=== PATIENT | male | born 1935 | race American Indian/Alaskan Native ===

== ENCOUNTER 2020-03-23 22:06 | Emergency (ER) | payer MEDICARE ==
--- NOTE | 2020-03-23 22:34 | Emergency Department Report ---
ED General Adult HPI - General Chief complaint: Extremity Injury, Lower Stated complaint: LT HIP PAIN/FALL PUI?: No Time Seen by Provider: 03/23/20 22:26 Source: patient, EMS ( EMS documentation not available at time of chart dictation ), RN notes reviewed Mode of arrival: Stretcher Limitations: Physical Limitation - History of Present Illness Initial comments: Patient is an 84-year-old gentleman with a probable history of Parkinson's, ambulatory, reportedly without a walker, hypertension, dementia. Primary care doctor Dr. Cristina with [facility] The patient presents to the ER with mechanical fall, with left hip pain. The pa tient denies additional injuries and additional complaints. He accidentally walked into someone and then fell. His left hip pain is constant, increases with palpation, range of motion and decreases with rest. He is demented and somewhat of a poor historian, so he has difficulty describing the qualitative nature of his symptoms, exacerbating, or relieving factors. He is not accompanied by friends or family at this time for additional information and/or collateral information As per collateral information obtained from nursing team and triage documentation, the fall was earlier on today. Patient is not accompanied by friends or family at this time for additional history. -: Sudden, This evening Location: left, lower extremity Quality: other Consistency: other Improves with: other Worsens with: other Associated Symptoms: other - Related Data Allergies Allergy/AdvReac Type Severity Reaction Status Date / Time Unable to Assess Allergy Unverified 03/23/20 22:57 ED Review of Systems ROS: Stated complaint: LT HIP PAIN/FALL Other details as noted in HPI Constitutional: denies: fever Eyes: denies: eye discharge Respiratory: denies: cough Cardiovascular: denies: syncope Gastrointestinal: denies: abdominal pain Genitourinary: denies: dysuria Musculoskeletal: arthralgia, myalgia Neurological: as per HPI ED Physical Exam - General Limitations: Physical Limitation General appearance: alert, anxious, in distress - Head Head exam: Present: atraumatic, normocephalic - Eye Eye exam: Present: normal appearance, EOMI. Absent: nystagmus - ENT ENT exam: Present: normal exam, normal orophraynx, mucous membranes moist, normal external ear exam - Neck Neck exam: Present: normal inspection, full ROM. Absent: tenderness, meningismus - Respiratory Respiratory exam: Present: normal lung sounds bilaterally. Absent: respiratory distress - Cardiovascular Cardiovascular Exam: Present: regular rate, normal rhythm, normal heart sounds. Absent: bradycardia, tachycardia, irregular rhythm, systolic murmur, diastolic murmur, rubs, gallop - GI/Abdominal GI/Abdominal exam: Present: soft. Absent: distended, tenderness, guarding, rebound, rigid, pulsatile mass - Rectal Rectal exam: Present: deferred - Extremities Exam Extremities exam: Present: tenderness, pedal edema, other (2+ pulses noted in the bilateral upper and lower extremities. There is no long bony tenderness with the exception of isolated left-sided hip and proximal femur tenderness. There is no ankle or knee tenderness. Range of motion is intact in the bilateral upper extremities, and right lower extremity. Range of motion in the left lower extremity limited secondary to pain). Absent: normal inspection, calf tenderness - Back Exam Back exam: Present: normal inspection, full ROM. Absent: CVA tenderness (R), CVA tenderness (L), paraspinal tenderness, vertebral tenderness - Neurological Exam Neurological exam: Present: alert (Patient is awake and follows commands. Has a nonspecific generalized tremor noted), other (No facial droop. Tongue midline. Extraocular movements intact bilaterally. Facial sensation intact to light touch in V1, V2, V3 distribution bilaterally. 5 and a 5 strength in 4 extremities. Sensation intact to light touch in 4 extremities.) - Psychiatric Psychiatric exam: Present: anxious - Skin Skin exam: Present: warm, dry, intact, normal color. Absent: rash ED Course Vital Signs 03/23/20 03/23/20 03/24/20 23:48 23:51 00:06 Temperature 98.2 F 97.2 F L Pulse Rate 73 78 Respiratory 18 18 16 Rate Blood Pressure 171/88 Blood Pressure 171/88 [Right] O2 Sat by Pulse 98 99 Oximetry - Reevaluation(s) Reevaluation #1: 03/23/20 23:55 Differential diagnosis, including but not limited to: Hip fracture, femur fracture, mechanical fall, intracranial injury, cervical spine injury Assessment and plan: 84-year-old gentleman with reported history of mechanical fall, found to have left-sided femur fracture, no C-spine injury, no intracranial injury, vital signs reviewed and appreciated, laboratory studies so far unremarkable. I have reached out to [facility] physician and discussed the case with Dr. Dacosta, they will likely transfer the patient to 1 of their primary receiving facilities as it is their policy. EKG shows first-degree AV block of unknown chronicity. Vital signs stable. This can be followed up/managed as an outpatient. 03/24/20 00:09 Reevaluation #2: 03/24/20 00:20 Dr Lomax, physician at [facility], accepting physician hypokalemia will be treated ED Medical Decision Making - Lab Data Result diagrams: 03/23/20 23:18 03/23/20 23:18 Lab Results 03/23/20 03/23/20 03/23/20 Range/Units 23:18 23:18 23:18 WBC 9.4 (4.5-11.0) K/mm3 RBC 4.51 (3.65-5.03) M/mm3 Hgb 13.3 (11.8-15.2) gm/dl Hct 40.6 (35.5-45.6) % MCV 90 (84-94) fl MCH 29 (28-32) pg MCHC 33 (32-34) % RDW 15.3 H (13.2-15.2) % Plt Count 151 (140-440) K/mm3 PT 13.6 (12.2-14.9) Sec. INR 1.02 (0.87-1.13) Estimated GFR > 60 ml/min BUN/Creatinine Ratio 15 % Urine Color (Yellow) Urine Turbidity (Clear) Urine pH (5.0-7.0) Ur Specific [place] (1.003-1.030) Urine Protein (Negative) mg/dL Urine Glucose (UA) (Negative) mg/dL Urine Ketones (Negative) mg/dL Urine Blood (Negative) Urine Nitrite (Negative) Urine Bilirubin (Negative) Urine Urobilinogen (<2.0) mg/dL Ur Leukocyte Esterase (Negative) Urine WBC (Auto) (0.0-6.0) /HPF Urine RBC (Auto) (0.0-6.0) /HPF Urine Mucus /HPF 03/23/20 Range/Units Unknown WBC (4.5-11.0) K/mm3 RBC (3.65-5.03) M/mm3 Hgb (11.8-15.2) gm/dl Hct (35.5-45.6) % MCV (84-94) fl MCH (28-32) pg MCHC (32-34) % RDW (13.2-15.2) % Plt Count (140-440) K/mm3 PT (12.2-14.9) Sec. INR (0.87-1.13) Estimated GFR ml/min BUN/Creatinine Ratio % Urine Color Straw (Yellow) Urine Turbidity Clear (Clear) Urine pH 7.0 (5.0-7.0) Ur Specific [place] 1.012 (1.003-1.030) Urine Protein <15 mg/dl (Negative) mg/dL Urine Glucose (UA) 50 (Negative) mg/dL Urine Ketones Neg (Negative) mg/dL Urine Blood Neg (Negative) Urine Nitrite Neg (Negative) Urine Bilirubin Neg (Negative) Urine Urobilinogen < 2.0 (<2.0) mg/dL Ur Leukocyte Esterase Neg (Negative) Urine WBC (Auto) < 1.0 (0.0-6.0) /HPF Urine RBC (Auto) 2.0 (0.0-6.0) /HPF Urine Mucus Few /HPF Lab Results 03/23/20 03/23/20 03/23/20 Range/Units 23:18 23:18 23:18 WBC 9.4 (4.5-11.0) K/mm3 RBC 4.51 (3.65-5.03) M/mm3 Hgb 13.3 (11.8-15.2) gm/dl Hct 40.6 (35.5-45.6) % MCV 90 (84-94) fl MCH 29 (28-32) pg MCHC 33 (32-34) % RDW 15.3 H (13.2-15.2) % Plt Count 151 (140-440) K/mm3 PT 13.6 (12.2-14.9) Sec. INR 1.02 (0.87-1.13) Estimated GFR > 60 ml/min BUN/Creatinine Ratio 15 % Urine Color (Yellow) Urine Turbidity (Clear) Urine pH (5.0-7.0) Ur Specific [place] (1.003-1.030) Urine Protein (Negative) mg/dL Urine Glucose (UA) (Negative) mg/dL Urine Ketones (Negative) mg/dL Urine Blood (Negative) Urine Nitrite (Negative) Urine Bilirubin (Negative) Urine Urobilinogen (<2.0) mg/dL Ur Leukocyte Esterase (Negative) Urine WBC (Auto) (0.0-6.0) /HPF Urine RBC (Auto) (0.0-6.0) /HPF Urine Mucus /HPF 03/23/20 Range/Units Unknown WBC (4.5-11.0) K/mm3 RBC (3.65-5.03) M/mm3 Hgb (11.8-15.2) gm/dl Hct (35.5-45.6) % MCV (84-94) fl MCH (28-32) pg MCHC (32-34) % RDW (13.2-15.2) % Plt Count (140-440) K/mm3 PT (12.2-14.9) Sec. INR (0.87-1.13) Estimated GFR ml/min BUN/Creatinine Ratio % Urine Color Straw (Yellow) Urine Turbidity Clear (Clear) Urine pH 7.0 (5.0-7.0) Ur Specific [place] 1.012 (1.003-1.030) Urine Protein <15 mg/dl (Negative) mg/dL Urine Glucose (UA) 50 (Negative) mg/dL Urine Ketones Neg (Negative) mg/dL Urine Blood Neg (Negative) Urine Nitrite Neg (Negative) Urine Bilirubin Neg (Negative) Urine Urobilinogen < 2.0 (<2.0) mg/dL Ur Leukocyte Esterase Neg (Negative) Urine WBC (Auto) < 1.0 (0.0-6.0) /HPF Urine RBC (Auto) 2.0 (0.0-6.0) /HPF Urine Mucus Few /HPF Vital Signs 03/23/20 23:48 Temperature 98.2 F Pulse Rate 73 Respiratory 18 Rate Blood Pressure 171/88 [Right] O2 Sat by Pulse 98 Oximetry - EKG Data -: EKG Interpreted by Ms EKG shows normal: sinus rhythm Rate: normal - EKG Data When compared to previous EKG there are: previous EKG unavailable 03/23/20 23:54 Sinus rhythm, 71 bpm, normal axis, TX interval prolonged, left ventricular hypertrophy, motion artifact, first-degree AV block, abnormal EKG, not a STEMI - Radiology Data Radiology results: report reviewed, image reviewed Print Report Referring Physician: KELLY SILVERMAN Patient Name: MAGDIEL ACUNA Date of : 1935 Sex: Male Report Date: 2020-03-23 Report Status: Finalized Findings [address] [address] XRay Report Signed Patient: MAGDIEL ACUNA MR#: [id number] : 1935 Acct:[id number] Age/Sex: 84 / M ADM Date: 03/23/20 Loc: ED Attending Dr: Ordering Physician: KELLY SILVERMAN MD Date of Service: 03/23/20 Procedure(s): XR pelvis 1-2V Accession Number(s): [id number] cc: KELLY SILVERMAN MD Fluoro Time In Minutes: PELVIS ONE VIEW LEFT FEMUR 5 VIEWS INDICATION / CLINICAL INFORMATION: Left hip pain after fall today. COMPARISON: None available. FINDINGS: BONES and JOINT(S): There is an acute left femoral neck fracture with an associated varus deformity. No dislocation. Mild arthritis is seen along the hips and the left knee. SOFT TISSUES: No acute abnormality. Multiple clips are seen along the pelvis with a penile prosthesis. ADDITIONAL FINDINGS: None. IMPRESSION: Acute left hip fracture as above. Signer Name: Bolivar Mixon MD Signed: 03/23/2020 11:05 PM Workstation Name: [id number] Transcribed By: MN Dictated By: Bolivar Mixon MD Electronically Authenticated By: Bolivar Mixon MD Signed Date/Time: 03/23/202304 DD/ 01 Print Report Referring Physician: KELLY SILVERMAN Patient Name: MAGDIEL ACUNA Date of : 1935 Sex: Male Report Date: 2020-03-23 Report Status: Finalized Findings [address] [address] XRay Report Signed Patient: MAGDIEL ACUNA MR#: [id number] : 1935 Acct:[id number] Age/Sex: 84 / M ADM Date: 03/23/20 Loc: ED Attending Dr: Ordering Physician: KELLY SILVERMAN MD Date of Service: 03/23/20 Procedure(s): XR femur 2+V LT Accession Number(s): [id number] cc: KELLY SILVERMAN MD Fluoro Time In Minutes: PELVIS ONE VIEW LEFT FEMUR 5 VIEWS INDICATION / CLINICAL INFORMATION: Left hip pain after fall today. COMPARISON: None available. FINDINGS: BONES and JOINT(S): There is an acute left femoral neck fracture with an associated varus deformity. No dislocation. Mild arthritis is seen along the hips and the left knee. SOFT TISSUES: No acute abnormality. Multiple clips are seen along the pelvis with a penile prosthesis. ADDITIONAL FINDINGS: None. IMPRESSION: Acute left hip fracture as above. Signer Name: Bolivar Mixon MD Sig [place]: 03/23/2020 11:05 PM Workstation Name: [id number] Transcribed By: MN Dictated By: Bolivar Mixon MD Electronically Authenticated By: Bolivar Mixon MD Signed Date/Time: 03/23/202304 DD/ 01 TD/TT: Print Report Referring Physician: KELLY SILVERMAN Patient Name: MAGDIEL ACUNA Date of : 1935 Sex: Male Report Date: 2020-03-23 Report Status: Finalized Findings [facility] [address] [place] [address] Cat Scan Report Signed Patient: MAGDIEL ACUNA MR#: [id number] : 1935 Acct:[id number] Age/Sex: 84 / M ADM Date: 03/23/20 Loc: ED Attend ing Dr: Ordering Physician: KELLY SILVERMAN MD Date of Service: 03/23/20 Procedure(s): CT head/brain wo con Accession Number(s): [id number] cc: KELLY SILVERMAN MD CT HEAD WITHOUT CONTRAST INDICATION : Closed head injury after fall. TECHNIQUE: Axial, coronal and sagittal CT imaging was performed from the skull apex through the skull base without contrast. All CT scans at this location are performed using CT dose reduction for ALARA by means of automated exposure control. COMPARISON: None available. FINDINGS: PARENCHYMA: No mass, midline shift, hemorrhage, extraaxial collection or acute territorial infarction. There is age-appropriate atrophy with probable chronic microvascular ischemic changes along the periventricular white matter. VENTRICLES: Enlarged secondary to atrophy. No acute abnormality. SOFT TISSUES: No significant abnormality of the included soft tissues/orbits. BONES: No acute osseous abnormality. SINUSES: No significant abnormality. ADDITIONAL FINDINGS: None. IMPRESSION: 1. No acute intracranial abnormality. 2. Additional chronic changes as above. Signer Name: Bolivar Mixon MD Signed: 03/23/2020 11:27 PM Workstation Name: [id number] Transcribed By: ELISA Dictated By: Bolivar Mixon MD Electronically Authenticated By: Bolivar Mixon MD Signed Date/Time: 03/23/202326 DD/ 24 TD/TT: Print Report Referring Physician: KELLY SILVERMAN Patient Name: MAGDIEL ACUNA Date of : 1935 Sex: Male Report Date: 2020-03-23 Report Status: Finalized Findings [facility] [address] [place] [address] Cat Scan Report Signed Patient: MAGDIEL ACUNA MR#: [id number] : 1935 Acct:[id number] Age/Sex: 84 / M ADM Date: 03/23/20 Loc: ED Attending Dr: Ordering Physician: KELLY SILVERMAN MD Date of Service: 03/23/20 Procedure(s): CT cervical spine wo con Accession Number(s): [id number] cc: KELLY SILVERMAN MD CT CERVICAL SPINE WITHOUT CONTRAST INDICATION: Neck pain/injury after fall. Closed head injury. COMPARISON: None available. TECHNIQUE: Axial, coronal and sagittal CT imaging of the cervical spine without contrast was performed. All CT scans at this location are performed using CT dose reduction for ALARA by means of automated exposure control. FINDINGS: VERTEBRAE:No acute fracture. Normal alignment. DISC SPACES: Generalized moderate to severe discogenic degenerative changes are present. FACET JOINTS:Multilevel bilateral facet hypertrophy. CENTRAL CANAL: No significant central canal stenosis. There is moderate to severe left neural foraminal narrowing at C3-C4. SOFT TISSUES:No significant abnormality. LUNG APICES: No significant abnormality. ADDITIONAL FINDINGS: None IMPRESSION: 1. No acute findings. 2. Moderate to severe cervical spondylosis. Signer Name: Bolivar Mixon MD Signed: 03/23/2020 11:29 PM Workstation Name: [id number] Transcribed By: ELISA Dictated By: Bolivar Mixon MD Electronically Authenticated By: Boliavr Mixon MD Signed Date/Time: 03/23/202328 DD/ 26 Critical care attestation.: If time is entered above; I have spent that time in minutes in the direct care of this critically ill patient, excluding procedure time. ED Disposition Clinical Impression: History of fall, First degree AV block, Hypokalemia Closed left femoral fracture Qualifiers: Encounter type: initial encounter Femur location: neck, unspecified portion Qualified Code(s): S72.002A - Fracture of unspecified part of neck of left femur, initial encounter for closed fracture Disposition: DC/TX-02 SHRT-TRM GEN HOSP IP Is pt being admited?: No Does the pt Need Aspirin: No Condition: Good Referrals: TOM CRISTINA [Other] - 3-5 Days
[2020-03-23 23:06] LABS: Bilirubin,Urine NEG (Negative); Blood,Urine NEG (Negative); Color,Urine Straw (Yellow); Mucus,Urine FEW /HPF; Protein,Urine <15 mg/dL mg/dL (Negative); Urobilinogen,Urine < 2.0 mg/dL (<2.0); WBC,Urine < 1.0 /HPF (0.0-6.0)
--- NOTE | 2020-03-23 23:09 | XRay Report ---
PELVIS ONE VIEW LEFT FEMUR 5 VIEWS INDICATION / CLINICAL INFORMATION: Left hip pain after fall today. COMPARISON: None available. FINDINGS: BONES and JOINT(S): There is an acute left femoral neck fracture with an associated varus deformity. No dislocation. Mild arthritis is seen along the hips and the left knee. SOFT TISSUES: No acute abnormality. Multiple clips are seen along the pelvis with a penile prosthesis . ADDITIONAL FINDINGS: None. IMPRESSION: Acute left hip fracture as above. Signer Name: Bolivar Mixon MD Signed: 03/23/2020 11:05 PM Workstation Name: [id number]
[2020-03-23] MEDS ORDERED: MORPHINE 4 MG/1 ML INJ IV ONE (23:28)
[2020-03-23] MEDS ORDERED: SODIUM CHLORIDE 0.9% 500 ML 500 ML IV ONE (23:28)
[2020-03-23 23:29] LABS: Hematocrit 40.6 % (35.5-45.6); Hemoglobin 13.3 gm/dl (11.8-15.2); Mean Corpuscular HGB Conc 33 % (32-34); Mean Corpuscular Volume 90 fl (84-94); Platelet Count 151 K/mm3 (140-440); Red Blood Count 4.51 M/mm3 (3.65-5.03); Red Cell Distribution Width 15.3 % (13.2-15.2)
--- NOTE | 2020-03-23 23:31 | Cat Scan Report ---
CT HEAD WITHOUT CONTRAST INDICATION : Closed head injury after fall. TECHNIQUE: Axial, coronal and sagittal CT imaging was performed from the skull apex through the skul l base without contrast. All CT scans at this location are performed using CT dose reduction for ALA RA by means of automated exposure control. COMPARISON: None available. FINDINGS: PARENCHYMA: No mass, midline shift, hemorrhage, extraaxial collection or acute territorial infarctio n. There is age-appropriate atrophy with probable chronic microvascular ischemic changes along the p eriventricular white matter. VENTRICLES: Enlarged secondary to atrophy. No acute abnormality. SOFT TISSUES: No significant abnormality of the included soft tissues/orbits. BONES: No acute osseous abnormality. SINUSES: No significant abnormality. ADDITIONAL FINDINGS: None. IMPRESSION: 1. No acute intracranial abnormality. 2. Additional chronic changes as above. Signer Name: Bolivar Mixon MD Signed: 03/23/2020 11:27 PM Workstation Name: [id number]
--- NOTE | 2020-03-23 23:34 | Cat Scan Report ---
CT CERVICAL SPINE WITHOUT CONTRAST INDICATION: Neck pain/injury after fall. Closed head injury. COMPARISON: None available. TECHNIQUE: Axial, coronal and sagittal CT imaging of the cervical spine without contrast was kaleee d. All CT scans at this location are performed using CT dose reduction for ALARA by means of automat ed exposure control. FINDINGS: VERTEBRAE:No acute fracture. Normal alignment. DISC SPACES: Generalized moderate to severe discogenic degenerative changes are present. FACET JOINTS:Multilevel bilateral facet hypertrophy. CENTRAL CANAL: No significant central canal stenosis. There is moderate to severe left neural foramin al narrowing at C3-C4. SOFT TISSUES:No significant abnormality. LUNG APICES: No significant abnormality. ADDITIONAL FINDINGS: None IMPRESSION: 1. No acute findings. 2. Moderate to severe cervical spondylosis. Signer Name: Bolivar Mixon MD Signed: 03/23/2020 11:29 PM Workstation Name: [id number]
[2020-03-23 23:40] LABS: INR 1.02 (0.87-1.13)
[2020-03-23 23:46] LABS: BUN/Creatinine Ratio 15; Blood Urea Nitrogen 12 mg/dL (9-20); Calcium 9.5 mg/dL (8.4-10.2); Hemolysis Index 8
[2020-03-24] MEDS ORDERED: POTASSIUM CHLORIDE ER 20 MEQ TAB PO ONE (00:20)
[2020-03-24] MEDS: POTASSIUM CHLORIDE 10 MEQ 10 MEQ/100 ML BAG IV SCH ×2 (00:50→02:03)
[2020-03-24] MEDS ORDERED: MORPHINE 4 MG/1 ML INJ IV ONE (02:00)
[2020-03-24 05:02] VITALS: BP 167/81
== END 2020-03-24 05:20 | disposition short-term general hospital (02) ==
LOC: ED 22:06
DX: S72.002A Fracture of unspecified part of neck of left femur, initial encounter for closed fracture (principal); E87.6 Hypokalemia; I44.0 Atrioventricular block, first degree; F03.90 Unspecified dementia, unspecified severity, without behavioral disturbance, psychotic disturbance, mood disturbance, and anxiety; E11.9 Type 2 diabetes mellitus without complications; I10 Essential (primary) hypertension; Z91.81 History of falling; W19.XXXA Unspecified fall, initial encounter; Y93.89 Activity, other specified; Y92.89 Other specified places as the place of occurrence of the external cause; Y99.8 Other external cause status
CPT/HCPCS: 36415; 70450; 72125; 72170; 73552; 80048; 81001; 82550; 83735; 84443; 85027; 85610; 87086; 93005; 96365; 96366; 96375; 96376; 99285; J2270; J3480; J7040